=== PATIENT | male | born 1965 | race Two or more races ===

== ENCOUNTER 2017-01-15 03:54 | Inpatient (IN) | payer MEDICAID ==
[~2017-01-15] VITALS: Ht 170.2 cm; Wt 80.3 kg
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
--- NOTE | 2017-01-15 04:05 | NUR ---
Dr Pickering at bedside.
[2017-01-15] MEDS ORDERED: MORPHINE SULFATE INJ 2 MG/ML DISP.SYRIN ONE (04:08)
[2017-01-15] MEDS ORDERED: ASPIRIN 81 MG TAB.CHEW ONE (04:08)
--- NOTE | 2017-01-15 04:15 | NUR ---
Medicated as ordered by Dr Pickering.
[2017-01-15] MEDS ORDERED: MORPHINE SULFATE INJ 2 MG/ML DISP.SYRIN IV ONE (04:30)
[2017-01-15] MEDS ORDERED: ASPIRIN 81 MG TAB.CHEW PO ONE (04:30)
--- NOTE | 2017-01-15 04:30 | NUR ---
xr at bedside.
--- NOTE | 2017-01-15 04:34 | NUR ---
fish farm laborer at bedside.
--- NOTE | 2017-01-15 04:40 | NUR ---
Patient reported relief from chest pressure, however, still does complain of right shoulder pain, worse with movement.
[2017-01-15 04:43] LABS: BASOPHILS # (AUTO) 0.1 /CMM (0.0-0.2); BASOPHILS % (AUTO) 0.8 % (0.0-2.0); EOSINOPHILS # (AUTO) 0.2 /CMM (0.0-0.7); EOSINOPHILS % (AUTO) 1.6 % (0.0-6.0); HEMATOCRIT 47 % (39-51); HEMOGLOBIN 16.1 g/dL (13.5-17.5); LYMPHOCYTES # (AUTO) 3.2 /CMM (0.8-4.8); LYMPHOCYTES % (AUTO) 30.7 % (20.0-44.0); MEAN CORPUSCULAR HEMOGLOBIN 30 PG (26.0-33.0); MEAN CORPUSCULAR HGB CONC 34 g/dl (31.0-36.0); MEAN CORPUSCULAR VOLUME 88 fL (80-96); MONOCYTES # (AUTO) 0.6 /CMM (0.1-1.30); MONOCYTES % (AUTO) 6.1 % (2.0-12.0); NEUTROPHILS # (AUTO) 6.3 /CMM (1.8-8.9); NEUTROPHILS % (AUTO) 60.8 % (43.0-81.0); PLATELET COUNT (AUTO) 189 /CMM (150-450); RDW COEFFICIENT OF VARIATION 14.5 (11.5-15.0); RED BLOOD CELL COUNT(AUTO) 5.37 MIL/uL (4.5-6.0); WHITE BLOOD COUNT (AUTO) 10.4 K/uL (4.3-11.0)
[2017-01-15 04:55] LABS: CALCIUM, SERUM 9.1 mg/dL (8.5-10.1); POTASSIUM 3.8 mmol/L (3.5-5.1)
[2017-01-15 04:58] LABS: INR 0.97 (0.87-1.13); PROTHROMBIN TIME 10.4 SECS (9.5-12.7)
[2017-01-15 05:04] LABS: TROPONIN I 0.742 ng/mL (0.00-0.056)
[2017-01-15 05:08] LABS: ALBUMIN 3.4 g/dL (3.4-5.0); BILIRUBIN,TOTAL 0.2 mg/dL (0.2-1.0); TOTAL PROTEIN, SERUM 6.9 g/dL (6.4-8.2)
--- NOTE | 2017-01-15 05:18 | NUR ---
report called to public safety telecommunicatorlinus mead. pending hospital admission.
--- NOTE | 2017-01-15 05:41 | NUR ---
er talking to dr. bryan regarding pt admission. will transport pt via acls protocol.
[2017-01-15] MEDS ORDERED: MAGNESIUM HYDROXIDE 30 ML UDC PO PRN (06:00)
[2017-01-15] MEDS ORDERED: ZOLPIDEM TARTRATE 5 MG TABLET PO PRN (06:00)
[2017-01-15] MEDS ORDERED: CLONIDINE HCL 0.1 MG TABLET PO PRN (06:00)
[2017-01-15] MEDS ORDERED: ONDANSETRON HCL/PF 4 MG/2 ML VIAL IVP PRN (06:00)
[2017-01-15] MEDS ORDERED: Z GUARD REMEDY 2 OZ OINT TP PRN (06:00)
[2017-01-15] MEDS ORDERED: MAG HYDROX/AL HYDROX/SIMETH 30 ML UDC PO PRN (06:00)
[2017-01-15] MEDS ORDERED: ACETAMINOPHEN 325 MG TABLET PO PRN (06:00)
--- NOTE | 2017-01-15 06:15 | NUR ---
BUCKLE SORTER NOTE: RECEIVED PATIENT FROM ER, NO ACUTE DISTRESS NOTED. BREATHING EVEN AND UNLABORED, NO SOB NOTED. IV TO LEFT WRIST IN PLACE. PATIENT COMPLAINS OF CHEST PAIN 8/10, AND RIGHT SHOULDER PAIN. AWAITING ADMIT ORDERS. ORIENTED PATIENT TO ROOM AND USE OF CALL LIGHT. BED LOCKED AND IN LOWEST POSITION, CALL LIGHT IN REACH. WILL ENDORSE TO DAY NURSE TO CONTINUE TO MONITOR.
[2017-01-15 08:00] VITALS: BP 135/87
[2017-01-15] MEDS: HYDROCODONE/APAP 5/325MG 1 EACH TABLET PO PRN ×2 (08:13→18:42)
[2017-01-15] MEDS: PANTOPRAZOLE 40 MG TABLET.DR PO SCH (08:25)
[2017-01-15] MEDS: ASPIRIN 81 MG TAB.CHEW PO SCH (08:25)
[2017-01-15] MEDS ORDERED: DICL75TA5 PO (08:45)
[2017-01-15] MEDS ORDERED: HYDR25TA4 PO (08:45)
[2017-01-15] MEDS ORDERED: TRAM50TA2 PO (08:45)
[2017-01-15] MEDS: FUROSEMIDE 40 MG/4 ML VIAL IV SCH ×3 (09:41→16:38)
[2017-01-15] MEDS: POTASSIUM CHLORIDE 20 MEQ TAB.PRT.SR PO SCH ×3 (09:42→11:58)
[2017-01-15] MEDS: CARVEDILOL 6.25 MG TABLET PO SCH ×2 (09:43→20:49)
[2017-01-15] MEDS: ENOXAPARIN SODIUM 80 MG/0.8 ML DISP.SYRIN SQ SCH ×2 (09:45→21:09)
--- NOTE | 2017-01-15 10:29 | NUR ---
TELE OPENING RN NOTES: PT A/O X4. BREATHING EVEN AND UNLABORED. IV PATENT AND INTACT IN LEFT WRIST. BED LOCKED IN LOW POSITION WITH SIDE RAILS X2. CALL LIGHT WITHIN REACH. KEPT CLEAN, DRY, AND COMFORTABLE.
[2017-01-15] MEDS: MORPHINE SULFATE INJ 2 MG/ML DISP.SYRIN IV PRN ×3 (10:47→20:51)
--- NOTE | 2017-01-15 10:52 | NUR ---
telesales manager notes Received a call from the lab regarding patient troponin level of 0.752 and MD made aware, no new order given. Will continue to monitor patient accordingly.
[2017-01-15 16:00] VITALS: BP 118/72
[2017-01-15 18:00] VITALS: BP 118/72
--- NOTE | 2017-01-15 18:40 | NUR ---
facility practice specialist notes Spoke to Dr. Fenton regarding patient being anxious and ordered Xanax 1 mg 1 tab PO BID PRN. All orders carried out and noted.
[2017-01-15] MEDS ORDERED: ALPRAZOLAM 1 MG TABLET PO PRN (19:00)
--- NOTE | 2017-01-15 19:30 | NUR ---
SUCTION DRUM DRIER OPERATOR CLOSING NOTES PATIENT RESTING IN BED. A/O X3. PT REPORTED OF ANXIETY AND RECEIVED ATIVAN. BREATHING EVEN AND UNLABORED. IV ACCESS PATENT AND INTACT. NO SIGNS OF REDNESS OR INFILTRATION. PT COMPLAINS OF BILATERAL SHOULDER AND CHEST PAIN. PATIENT GIVEN NORCO. KEPT CLEAN, DRY, AND COMFORTABLE. ALL NEEDS MET. BED IN LOW LOCKED POSITION WITH SIDE RAILS X2. CALL LIGHT WITHIN REACH. ENDORSED TO DOCK CLERK NURSE.
[2017-01-15 20:00] VITALS: BP 127/81
[2017-01-15 20:31] VITALS: BP 127/81
[2017-01-15] MEDS ORDERED: ATORVASTATIN 40 MG TABLET PO SCH (22:00)
[2017-01-16] VITALS: BP 132/72
[2017-01-16 04:00] VITALS: BP 116/73
[2017-01-16 06:44] LABS: BASOPHILS # (AUTO) 0.1 /CMM (0.0-0.2); BASOPHILS % (AUTO) 0.9 % (0.0-2.0); EOSINOPHILS # (AUTO) 0.2 /CMM (0.0-0.7); EOSINOPHILS % (AUTO) 2.3 % (0.0-6.0); HEMATOCRIT 53 % (39-51); HEMOGLOBIN 17.5 g/dL (13.5-17.5); LYMPHOCYTES # (AUTO) 2.4 /CMM (0.8-4.8); LYMPHOCYTES % (AUTO) 29.8 % (20.0-44.0); MEAN CORPUSCULAR HEMOGLOBIN 29 PG (26.0-33.0); MEAN CORPUSCULAR HGB CONC 33 g/dl (31.0-36.0); MEAN CORPUSCULAR VOLUME 88 fL (80-96); MONOCYTES # (AUTO) 0.6 /CMM (0.1-1.30); MONOCYTES % (AUTO) 7.3 % (2.0-12.0); NEUTROPHILS # (AUTO) 4.9 /CMM (1.8-8.9); NEUTROPHILS % (AUTO) 59.7 % (43.0-81.0); PLATELET COUNT (AUTO) 191 /CMM (150-450); RDW COEFFICIENT OF VARIATION 15.2 (11.5-15.0); RED BLOOD CELL COUNT(AUTO) 5.99 MIL/uL (4.5-6.0); WHITE BLOOD COUNT (AUTO) 8.2 K/uL (4.3-11.0)
[2017-01-16 07:07] LABS: ALBUMIN 3.4 g/dL (3.4-5.0); BILIRUBIN,TOTAL 0.3 mg/dL (0.2-1.0); CALCIUM, SERUM 8.9 mg/dL (8.5-10.1); CREATININE 1.1 mg/dL (0.6-1.3); MAGNESIUM 1.9 mg/dL (1.8-2.4); PHOSPHORUS 3.6 mg/dL (2.5-4.9); POTASSIUM 3.6 mmol/L (3.5-5.1); TOTAL PROTEIN, SERUM 7.1 g/dL (6.4-8.2)
[2017-01-16 07:36] LABS: TROPONIN I 0.692 ng/mL (0.00-0.056)
--- NOTE | 2017-01-16 07:36 | NUR ---
RN NOTES / TROPONIN LAB CALLED WITH CRITICAL VALUE OF TROPONIN. TROPONIN LEVEL OF 0.692 PLEASE REFER TO TROPONIN TREND IT IS TRENDING DOWN. MD WILL MADE AWARE
--- NOTE | 2017-01-16 07:40 | NUR ---
RN OPENING NOTES TELE RECEIVED REPORT FROM INSIDE SALES COORDINATOR NURSE. PATIENT IS IN BED. BED IN LOW POSITION, LOCKED AND 2 SIDE RAILS ARE UP. NO SIGNS OR SYMPTOMS OF DISTRESS. IV SITE IS INTACT AND POTENT. WILL CONTINUE TO MONITOR AND ASSESS PATIENT THROUGHOUT MY SHIFT.
[2017-01-16] MEDS: PANTOPRAZOLE 40 MG TABLET.DR PO SCH (07:50)
[2017-01-16 08:00] VITALS: BP 144/97
[2017-01-16] MEDS: ASPIRIN 81 MG TAB.CHEW PO SCH (08:40)
[2017-01-16 08:41] VITALS: BP 144/72
[2017-01-16] MEDS: CARVEDILOL 6.25 MG TABLET PO SCH (08:41)
[2017-01-16] MEDS: HYDROCODONE/APAP 5/325MG 1 EACH TABLET PO PRN (08:45)
[2017-01-16] MEDS ORDERED: FUROSEMIDE 40 MG TABLET PO SCH (09:00)
[2017-01-16] MEDS ORDERED: ALPR1TAB7 PO (09:51)
[2017-01-16] MEDS ORDERED: ASPI81TA2 PO (09:51)
[2017-01-16] MEDS ORDERED: FURO40TA5 PO (09:51)
[2017-01-16] MEDS ORDERED: ATOR40TA PO (09:51)
[2017-01-16] MEDS ORDERED: CARV6.252 PO (09:51)
[2017-01-16] MEDS ORDERED: HYDR-3326 PO (10:00)
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
== END 2017-01-16 11:00 | disposition home or self-care (01) | DRG 190 ==
LOC: ER 03:56 → TELE 05:41
PROVIDERS: ADMIT Internal Medicine; ATTEND Internal Medicine
DX: I21.4 Non-ST elevation (NSTEMI) myocardial infarction (principal); J84.9 Interstitial pulmonary disease, unspecified; I11.0 Hypertensive heart disease with heart failure; I50.22 Chronic systolic (congestive) heart failure; I25.10 Atherosclerotic heart disease of native coronary artery without angina pectoris
CPT/HCPCS: 36415; 71010-TC; 80048-TC; 80053-TC; 80061-TC; 80076-TC; 83735-TC; 83880; 84100-TC; 84484-TC; 85025-TC; 85730-TC; 87081-TC; 93307-TC; A4606; G0480; J1650; J1940; J2270; Z7610

== ENCOUNTER 2017-01-18 16:17 | Emergency (ER) | payer MEDICAID ==
[~2017-01-18] VITALS: Ht 167.6 cm; Wt 81.6 kg
[~2017-01-18 16:17] MED LIST: ALPR1TAB7 PO; ASPI81TA2 PO; ATOR40TA PO; CARV6.252 PO; DICL75TA5 PO; FURO40TA5 PO; HYDR-3326 PO; HYDR25TA4 PO; TRAM50TA2 PO
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
[2017-01-18 16:48] VITALS: BP 151/94
[2017-01-18] MEDS ORDERED: oxyCODONE/APAP (5/325 MG) 1 UDTAB TABLET ONE (17:24)
[2017-01-18] MEDS ORDERED: KETOROLAC TROMETHAMINE INJ 30 MG/ML VIAL ONE (17:25)
[2017-01-18] MEDS ORDERED: oxyCODONE/APAP (5/325 MG) 1 UDTAB TABLET PO ONE (17:30)
[2017-01-18] MEDS ORDERED: KETOROLAC TROMETHAMINE INJ 30 MG/ML VIAL IM ONE (17:30)
== END 2017-01-18 17:36 | disposition home or self-care (01) ==
LOC: ER 16:18
DX: M25.511 Pain in right shoulder (principal); G89.29 Other chronic pain; I10 Essential (primary) hypertension; I25.10 Atherosclerotic heart disease of native coronary artery without angina pectoris; Z79.82 Long term (current) use of aspirin
CPT/HCPCS: 96372; 99283; A4606; A6402; J1885; Z7610